=== PATIENT | female | born 1930 | race Caucasian/White ===

== ENCOUNTER 2016-11-20 22:10 | Emergency (ER) | payer MEDICARE ==
--- NOTE | 2016-11-20 23:01 | ED ---
General Adult HPI - General Chief complaint: Urogenital Stated complaint: lumps on body/swollen feet Time Seen by Provider: 11/20/16 22:34 Source: patient, RN notes reviewed, old records reviewed Mode of arrival: wheelchair Limitations: no limitations - History of Present Illness Initial comments: This is an 86-year-old female presenting to the with her daughter and son-in- law. Patient has a history of dementia. She was [facility] after receiving 3 L of fluids after being dehydrated. Patient daughter reports that he noticed that she started to have some swelling in her legs. They stated they gave her one half of a Lasix pill. The report they're concerned because they noticed some edema over her suprapubic region in her inner thigh. The report that she's had no shortness of breath or any worsening chest pain. Patient daughter also reports that she was in the hospital her INR was very elevated. They have that point discontinued her Coumadin until could normalize. They state that they checked it today and it was within normal limits. Patient denies any recent fever, chills, shortness of breath, chest pain, back pain, abdominal pain, nausea vomiting, numbness or tingling, dysuria or hematuria, constipation or diarrhea, headaches or visual changes, or any other current symptoms - Related Data Allergies Allergy/AdvReac Type Severity Reaction Status Date / Time No Known Allergies Allergy Verified 11/20/16 22:54 Review of Systems ROS Statement: Those systems with pertinent positive or pertinent negative responses have been documented in the HPI. ROS Other: All systems not noted in ROS Statement are negative. Past Medical History Past Medical History: Atrial Fibrillation, Dementia, Diabetes Mellitus, Hypertension Additional Past Medical History / Comment(s): anemia, History of Any Multi-Drug Resistant Organisms: None Reported Past Surgical History: Heart Catheterization With Stent, Pacemaker Past Psychological History: No Psychological Hx Reported Smoking Status: Never smoker Past Alcohol Use History: None Reported Past Drug Use History: None Reported General Exam - General Exam Comments Initial Comments: This is a 78-year-old female. No acute distress. Limitations: no limitations General appearance: alert, in no apparent distress Head exam: Present: atraumatic, normocephalic, normal inspection Eye exam: Present: normal appearance, PERRL, EOMI. Absent: scleral icterus, conjunctival injection, periorbital swelling ENT exam: Present: normal exam, mucous membranes moist Neck exam: Present: normal inspection. Absent: tenderness, meningismus, lymphadenopathy Respiratory exam: Present: normal lung sounds bilaterally. Absent: respiratory distress, wheezes, rales, rhonchi, stridor Cardiovascular Exam: Present: regular rate, normal rhythm, normal heart sounds. Absent: systolic murmur, diastolic murmur, rubs, gallop, clicks GI/Abdominal exam: Present: soft, normal bowel sounds, other (Patient has some suprapubic area of edema. It is pitting.). Absent: distended, tenderness, guarding, rebound, rigid Extremities exam: Present: normal inspection, full ROM, normal capillary refill , pedal edema (2+ pedal edema in the left lower leg. One plus pedal edema right lower leg. Evidence of ecchymosis over her feet and ankles.). Absent: tenderness, joint swelling, calf tenderness Back exam: Present: normal inspection Neurological exam: Present: alert, oriented X3, CN II-XII intact Psychiatric exam: Present: normal affect, normal mood Skin exam: Present: warm, dry, intact, normal color. Absent: rash Course Vital Signs 11/20/16 22:13 Temperature 97.4 F L Pulse Rate 88 Respiratory 20 Rate Blood Pressure 128/83 O2 Sat by Pulse 96 Oximetry Medical Decision Making - Medical Decision Making This is an 86-year-old female chief complaint of swelling over her legs, and suprapubic region. They were concerned of what could be causing the swelling and these lumps. Patient started reports that they were discharged from emergency Receiving 3 L of fluid after she was dehydrated. They state that they did restart her Lasix but gave her only 20 mg. Discussed with them that they need to increase her Lasix to 40 mg for the next few days. Discussed elevating her leg. Discussed that all of the "lumps" are just dependent edema. Patient needs to follow-up with her primary care provider. She does not have any worsening shortness of breath and lungs are clear to auscultation. Discussed that patient was more comfortable at home with increasing her Lasix and elevating and instructed for them to return if she does have any worsening shortness of breath. Patient caregivers agreed to treatment plan will comply. Return parameters were discussed. Disposition Clinical Impression: Dependent edema Disposition: HOME SELF-CARE Condition: Good Additional Instructions: Patient's knee is to increase Lasix to 40 mg daily for the next few days. Follow-up with your primary care physician. Elevate the legs with pillows while sleeping at night. Return to the emergency department if any alarming signs or symptoms occur. Referrals: Nonstaff,Physician [Primary Care Provider] - 1-2 days Time of Disposition: 23:00
[2016-11-20 23:27] VITALS: BP 128/60; PULSE 90; RESP 18; TEMP 97.6
--- NOTE | 2016-11-20 23:30 | ED ---
Disposition Clinical Impression: Dependent edema Disposition: HOME SELF-CARE Condition: Good Instructions: Leg Edema (ED) Additional Instructions: Patient's knee is to increase Lasix to 40 mg daily for the next few days. Follow-up with your primary care physician. Elevate the legs with pillows while sleeping at night. Return to the emergency department if any alarming signs or symptoms occur. Referrals: Nonstaff,Physician [Primary Care Provider] - 1-2 days Time of Disposition: 23:30
== END 2016-11-20 23:44 | disposition home or self-care (01) ==
LOC: EC 22:10
DX: R60.0 Localized edema (principal)
CPT/HCPCS: 99283

== ENCOUNTER 2016-12-08 12:03 | Emergency (ER) | payer MEDICARE ==
[2016-12-08] MEDS ORDERED: SODIUM CHLORIDE 0.9% 1,000 ML IV STA (12:32)
[2016-12-08] MEDS ORDERED: SODIUM CHLORIDE 0.9% 500 ML IV STA (12:32)
--- NOTE | 2016-12-08 12:59 | ED ---
General Adult HPI - General Chief complaint: Recheck/Abnormal Lab/Rx Stated complaint: dehydrated Time Seen by Provider: 12/08/16 12:18 Source: patient, RN notes reviewed Mode of arrival: ambulatory Limitations: no limitations - History of Present Illness Initial comments: Patient 86-year-old female who presents emergency room today with family members for possible dehydration. They do admit that her appetite has been decreased over the last few days. States was not drinking much water. States that they're worried that she may be some pain and discomfort as it appears that when she eats she feels uncomfortable. Patient denies any pain. She states that her appetite has been down she's feels like not eating. She denies any other symptoms. Patient denies any recent fever, chills, shortness of breath , chest pain, back pain, abdominal pain, nausea or vomiting, numbness or tingling, dysuria or hematuria, constipation or diarrhea, headaches or visual changes, or any other complaints. - Related Data Home Medications Medication Instructions Recorded Confirmed ALPRAZolam [Xanax] 0.25 mg PO HS 11/20/16 12/08/16 Apriso Er 0.375gm 0.375 gram PO BID 11/20/16 12/08/16 Budesonide [Budesonide EC] 3 mg PO DAILY 11/20/16 12/08/16 Copper 2 Mg 1 mg PO Q48H 11/20/16 12/08/16 Dicyclomine [Bentyl] 10 mg PO QID PRN 11/20/16 12/08/16 Ferrous Sulfate [Feosol] 325 mg PO DAILY 11/20/16 12/08/16 Levothyroxine Sodium [Synthroid] 50 mcg PO DAILY 11/20/16 12/08/16 Meclizine [Antivert] 12.5 mg PO Q6H PRN 11/20/16 12/08/16 Metoprolol Succinate [Toprol XL] 25 mg PO DAILY 11/20/16 12/08/16 Omeprazole [PriLOSEC] 20 mg PO AC-BRKFST 11/20/16 12/08/16 Ranitidine HCl 300 mg PO HS 11/20/16 12/08/16 Sertraline [Zoloft] 12.5 - 50 mg PO DAILY PRN 11/20/16 12/08/16 metFORMIN HCL [metFORMIN HCL ER] 500 mg PO BID 11/20/16 12/08/16 traZODone HCL 50 mg PO HS 11/20/16 12/08/16 Aspirin 325 mg PO DAILY 12/08/16 12/08/16 Furosemide [Lasix] 20 mg PO Q48H 12/08/16 12/08/16 Allergies Allergy/AdvReac Type Severity Reaction Status Date / Time No Known Allergies Allergy Verified 12/08/16 13:23 Review of Systems ROS Statement: Those systems with pertinent positive or pertinent negative responses have been documented in the HPI. ROS Other: All systems not noted in ROS Statement are negative. Past Medical History Past Medical History: Atrial Fibrillation, Dementia, Diabetes Mellitus, Hypertension Additional Past Medical History / Comment(s): anemia, History of Any Multi-Drug Resistant Organisms: None Reported Past Surgical History: Heart Catheterization With Stent, Pacemaker Past Psychological History: No Psychological Hx Reported Smoking Status: Never smoker Past Alcohol Use History: None Reported Past Drug Use History: None Reported General Exam - General Exam Comments Initial Comments: General: The patient is awake and alert. Eye: Pupils are equal, round and reactive to light, extra-ocular movements are intact. No nystagmus. There is normal conjunctiva bilaterally. No signs of icterus. Ears, nose, mouth and throat: There are moist mucous membranes and no oral lesions. Neck: The neck is supple, there is no tenderness or JVD. Cardiovascular: There is a regular rate and rhythm. No murmur, rub or gallop is appreciated. Respiratory: Lungs are clear to auscultation, respirations are non-labored, breath sounds are equal. No wheezes, stridor, rales, or rhonchi. Gastrointestinal: Soft, non-distended, non-tender abdomen without masses or organomegaly noted. There is no rebound or guarding present. No CVA tenderness. Bowel sounds are unremarkable. Musculoskeletal: Normal ROM, no tenderness. Strength 5/5. Sensation intact. Pulses equal bilaterally 2+. Neurological: A&O x 3. CN II-XII intact, There are no obvious motor or sensory deficits. Coordination appears grossly intact. Speech is normal. Skin: Skin is warm and dry and no rashes or lesions are noted. Psychiatric: Cooperative, appropriate mood & affect, normal judgment. Limitations: no limitations Course Vital Signs 12/08/16 12/08/16 12:07 15:11 Temperature 97 F L 96.9 F L Pulse Rate 83 73 Respiratory 18 16 Rate Blood Pressure 133/66 127/73 O2 Sat by Pulse 94 L 92 L Oximetry Medical Decision Making - Medical Decision Making Case discussed in detail with attending physician . Patient reexamined at this time shows no signs of distress resting comfortably. Labs reviewed unremarkable. Patient's urinalysis will have culture added. Patient resting comfortably with no complaints. Will be discharged home advised follow-up the family doctor. Advised return for any other concerns. - Lab Data Result diagrams: 12/08/16 13:35 12/08/16 13:35 Lab Results 12/08/16 12/08/16 12/08/16 Range/Units 13:35 13:35 13:35 WBC 4.2 (3.8-10.6) k/uL RBC 4.46 (3.80-5.40) m/uL Hgb 12.5 (11.4-16.0) gm/dL Hct 42.0 (34.0-46.0) % MCV 94.1 (80.0-100.0) fL MCH 28.1 (25.0-35.0) pg MCHC 29.8 L (31.0-37.0) g/dL RDW 16.2 H (11.5-15.5) % Plt Count 236 (150-450) k/uL Neutrophils % 65 % Lymphocytes % 22 % Monocytes % 7 % Eosinophils % 1 % Basophils % 1 % Neutrophils # 2.7 (1.3-7.7) k/uL Lymphocytes # 0.9 L (1.0-4.8) k/uL Monocytes # 0.3 (0-1.0) k/uL Eosinophils # 0.0 (0-0.7) k/uL Basophils # 0.0 (0-0.2) k/uL Hypochromasia Marked Anisocytosis Slight PT 12.5 H (9.0-12.0) sec INR 1.3 H (<1.2) APTT 27.6 (22.0-30.0) sec Sodium 140 (137-145) mmol/L Potassium 4.7 (3.5-5.1) mmol/L Chloride 104 (98-107) mmol/L Carbon Dioxide 27 (22-30) mmol/L Anion Gap 9 mmol/L BUN 31 H (7-17) mg/dL Creatinine 1.10 H (0.52-1.04) mg/dL Est GFR (MDRD) Af Amer 57 (>60 ml/min/1.73 sqM) Est GFR (MDRD) Non-Af 47 (>60 ml/min/1.73 sqM) Glucose 97 (74-99) mg/dL Calcium 8.7 (8.4-10.2) mg/dL Total Bilirubin 0.4 (0.2-1.3) mg/dL AST 24 (14-36) U/L ALT 26 (9-52) U/L Alkaline Phosphatase 125 (38-126) U/L Total Protein 5.8 L (6.3-8.2) g/dL Albumin 2.8 L (3.5-5.0) g/dL Urine Color Urine Appearance (Clear) Urine pH (5.0-8.0) Ur Specific [place] (1.001-1.035) Urine Protein (Negative) Urine Glucose (UA) (Negative) Urine Ketones (Negative) Urine Blood (Negative) Urine Nitrite (Negative) Urine Bilirubin (Negative) Urine Urobilinogen (<2.0) mg/dL Ur Leukocyte Esterase (Negative) Urine RBC (0-5) /hpf Urine WBC (0-5) /hpf Ur Squamous Epith Cells (0-4) /hpf Hyaline Casts (0-2) /lpf Urine Mucus (None) /hpf 12/08/16 Range/Units 15:00 WBC (3.8-10.6) k/uL RBC (3.80-5.40) m/uL Hgb (11.4-16.0) gm/dL Hct (34.0-46.0) % MCV (80.0-100.0) fL MCH (25.0-35.0) pg MCHC (31.0-37.0) g/dL RDW (11.5-15.5) % Plt Count (150-450) k/uL Neutrophils % % Lymphocytes % % Monocytes % % Eosinophils % % Basophils % % Neutrophils # (1.3-7.7) k/uL Lymphocytes # (1.0-4.8) k/uL Monocytes # (0-1.0) k/uL Eosinophils # (0-0.7) k/uL Basophils # (0-0.2) k/uL Hypochromasia Anisocytosis PT (9.0-12.0) sec INR (<1.2) APTT (22.0-30.0) sec Sodium (137-145) mmol/L Potassium (3.5-5.1) mmol/L Chloride (98-107) mmol/L Carbon Dioxide (22-30) mmol/L Anion Gap mmol/L BUN (7-17) mg/dL Creatinine (0.52-1.04) mg/dL Est GFR (MDRD) Af Amer (>60 ml/min/1.73 sqM) Est GFR (MDRD) Non-Af (>60 ml/min/1.73 sqM) Glucose (74-99) mg/dL Calcium (8.4-10.2) mg/dL Total Bilirubin (0.2-1.3) mg/dL AST (14-36) U/L ALT (9-52) U/L Alkaline Phosphatase (38-126) U/L Total Protein (6.3-8.2) g/dL Albumin (3.5-5.0) g/dL Urine Color Yellow Urine Appearance Clear (Clear) Urine pH 5.5 (5.0-8.0) Ur Specific [place] 1.015 (1.001-1.035) Urine Protein 1+ H (Negative) Urine Glucose (UA) Negative (Negative) Urine Ketones Trace H (Negative) Urine Blood Negative (Negative) Urine Nitrite Negative (Negative) Urine Bilirubin Negative (Negative) Urine Urobilinogen <2.0 (<2.0) mg/dL Ur Leukocyte Esterase Moderate H (Negative) Urine RBC 1 (0-5) /hpf Urine WBC 6 H (0-5) /hpf Ur Squamous Epith Cells <1 (0-4) /hpf Hyaline Casts 94 H (0-2) /lpf Urine Mucus Rare H (None) /hpf Disposition Clinical Impression: Decreased appetite Disposition: HOME SELF-CARE Condition: Stable Additional Instructions: Please increase oral fluids. Please follow-up with family doctor in the next 2 days of symptoms have not improved. Please return to emergency room if the symptoms increase or worsen or for any other concerns. Referrals: None,Stated [REFERRING] - 1-2 days Time of Disposition: 15:24
[2016-12-08 14:05] LABS: Calcium 8.7 mg/dL (8.4-10.2); Potassium 4.7 mmol/L (3.5-5.1); Total Bilirubin 0.4 mg/dL (0.2-1.3); Total Protein 5.8 g/dL (6.3-8.2)
[2016-12-08 14:07] LABS: Anisocytosis Slight; Basophils % (A) 1 %; CH 27.6; CHCM 29.6; Eosinophils % (A) 1 %; HGB 12.5 gm/dL (11.4-16.0); Hypochromasia Marked; Luc # (Auto) 0.15; Luc % (Auto) 4; Lymphocytes # (A) 0.9 k/uL (1.0-4.8); Lymphocytes % (A) 22 %; MCH 28.1 pg (25.0-35.0); MCHC 29.8 g/dL (31.0-37.0); MCV 94.1 fL (80.0-100.0); Mean Platelet Volume 8.1; Monocytes # (A) 0.3 k/uL (0-1.0); Monocytes % (A) 7 %; Neutrophils # (A) 2.7 k/uL (1.3-7.7); Neutrophils % (A) 65 %; RBC 4.46 m/uL (3.80-5.40); RDW 16.2 % (11.5-15.5); WBC 4.2 k/uL (3.8-10.6); WBC (Perox) 4.42
[2016-12-08 14:08] LABS: INR 1.3 (<1.2); Partial Thromboplastin Time 27.6 sec (22.0-30.0); Prothrombin Time 12.5 sec (9.0-12.0)
--- NOTE | 2016-12-08 14:11 | XR ---
EXAMINATION TYPE: XR chest 2V DATE OF EXAM: 12/08/2016 COMPARISON: NONE INDICATION: Cough TECHNIQUE: Frontal and lateral views of the chest are obtained. FINDINGS: The heart size is normal. The pulmonary vasculature is normal. There is a small right pleural effusion. Pacemaker overlies left chest. IMPRESSION: 1. Small right pleural effusion
[2016-12-08 15:12] VITALS: BP 127/73; PULSE 73; RESP 16; TEMP 96.9
[2016-12-08 15:14] LABS: Appearance,Urine Clear (Clear); Bilirubin,Urine Negative (Negative); Glucose,Urine (UA) Negative (Negative); Ketones,Urine Trace (Negative); Leukocyte Esterase,Urine Moderate (Negative); Mucus,Urine Rare /hpf; Nitrite,Urine Negative (Negative); PH, Urine 5.5 (5.0-8.0); Particle Count 3561; Protein,Urine 1+ (Negative); RBC,Urine 1 /hpf (0-5); Specific Gravity,Urine 1.015 (1.001-1.035); Squamous Epithelial Cell,Urine <1 /hpf (0-4); UA Billing (MACRO vs. MICRO) MICRO; Urobilinogen,Urine <2.0 mg/dL (<2.0); WBC,Urine 6 /hpf (0-5)
== END 2016-12-08 15:37 | disposition home or self-care (01) ==
LOC: EC 12:03
DX: R63.0 Anorexia (principal); E86.0 Dehydration; I10 Essential (primary) hypertension; E11.9 Type 2 diabetes mellitus without complications; F03.90 Unspecified dementia, unspecified severity, without behavioral disturbance, psychotic disturbance, mood disturbance, and anxiety; I48.91 Unspecified atrial fibrillation; D64.9 Anemia, unspecified; Z95.0 Presence of cardiac pacemaker; Z79.82 Long term (current) use of aspirin; Z79.84 Long term (current) use of oral hypoglycemic drugs; Z79.899 Other long term (current) drug therapy
CPT/HCPCS: 36415; 71020; 80053; 81001; 85025; 85610; 85730; 87086; 96360; 99284

== ENCOUNTER 2016-12-11 12:58 | Inpatient (IN) | payer MEDICARE ==
[2016-12-11] MEDS ORDERED: IPRATROPIUM-ALBUTEROL 3 ML NEB INHALATION STA (13:09)
--- NOTE | 2016-12-11 13:14 | ED ---
General Adult HPI - General Chief complaint: Shortness of Breath Stated complaint: RUPERT Time Seen by Provider: 12/11/16 13:05 Source: family, EMS, RN notes reviewed Mode of arrival: EMS Limitations: altered mental status - History of Present Illness Initial comments: Patient is a pleasant 86-year-old female presenting to the emergency department with difficulty in breathing and decreased responsiveness. Daughter provides history. Patient is nonverbal at this time. Daughter states patient has advanced dementia and they are considering hospice. Patient has had progressive shortness of breath over a couple of days, worse today. Patient has been less responsive today. No history of chronic lung disease. - Related Data Home Medications Medication Instructions Recorded Confirmed ALPRAZolam [Xanax] 0.25 mg PO HS 11/20/16 12/11/16 Apriso Er 0.375gm 0.375 gram PO BID 11/20/16 12/11/16 Budesonide [Budesonide EC] 3 mg PO DAILY 11/20/16 12/11/16 Copper 2 Mg 1 mg PO Q48H 11/20/16 12/11/16 Dicyclomine [Bentyl] 10 mg PO QID PRN 11/20/16 12/11/16 Ferrous Sulfate [Feosol] 325 mg PO DAILY 11/20/16 12/11/16 Levothyroxine Sodium [Synthroid] 50 mcg PO DAILY 11/20/16 12/11/16 Meclizine [Antivert] 12.5 mg PO TID PRN 11/20/16 12/11/16 Metoprolol Succinate [Toprol XL] 25 mg PO DAILY 11/20/16 12/11/16 Omeprazole [PriLOSEC] 20 mg PO AC-BRKFST 11/20/16 12/11/16 Ranitidine HCl 300 mg PO HS 11/20/16 12/11/16 Sertraline [Zoloft] 12.5 - 50 mg PO DAILY PRN 11/20/16 12/11/16 metFORMIN HCL [metFORMIN HCL ER] 500 mg PO BID 11/20/16 12/11/16 traZODone HCL 50 mg PO HS 11/20/16 12/11/16 Furosemide [Lasix] 20 mg PO Q48H 12/08/16 12/11/16 Allergies Allergy/AdvReac Type Severity Reaction Status Date / Time No Known Allergies Allergy Verified 09/04/17 14:26 Review of Systems ROS Statement: Those systems with pertinent positive or pertinent negative responses have been documented in the HPI. ROS Other: All systems not noted in ROS Statement are negative. Limitations: ROS unobtainable due to patients medical condition Respiratory: Reports: dyspnea. Denies: cough Past Medical History Past Medical History: Atrial Fibrillation, Dementia, Diabetes Mellitus, Hypertension Additional Past Medical History / Comment(s): anemia, History of Any Multi-Drug Resistant Organisms: None Reported Past Surgical History: Heart Catheterization With Stent, Pacemaker Past Psychological History: No Psychological Hx Reported Smoking Status: Never smoker Past Alcohol Use History: None Reported Past Drug Use History: None Reported General Exam Limitations: altered mental status General appearance: alert, cachectic Head exam: Present: atraumatic Eye exam: Present: normal appearance ENT exam: Present: normal oropharynx Respiratory exam: Present: decreased breath sounds Cardiovascular Exam: Present: tachycardia, irregular rhythm GI/Abdominal exam: Present: soft. Absent: tenderness Extremities exam: Present: pedal edema (Trace bilateral). Absent: calf tenderness Back exam: Present: normal inspection Neurological exam: Present: alert, other (Limited exam). Absent: motor sensory deficit Psychiatric exam: Present: flat affect Skin exam: Present: normal color Course Vital Signs 12/11/16 12/11/16 12/11/16 13:04 13:45 13:54 Temperature 97.0 F L Pulse Rate 108 H 108 H 104 H Respiratory 28 H 26 H Rate Blood Pressure 139/63 108/55 O2 Sat by Pulse 65 L 100 Oximetry 12/11/16 12/11/16 14:10 15:35 Temperature Pulse Rate 112 H 95 Respiratory 26 H 18 Rate Blood Pressure 150/65 O2 Sat by Pulse 99 Oximetry EKG Findings - EKG Comments: EKG Findings:: A. fib with rate of 98. QRS 84. QT 378. QTC 42. Normal axis. Normal QRS. Lateral T wave inversion. Procedures - ABG Interpretation Ph: 7.19 PCO2: 85.5 PO2: 467 Interpretation: respiratory acidosis Medical Decision Making - Medical Decision Making Patient reexamined and significantly improved with BiPAP. Family updated on results and plan. Family wants patient to be no chest compressions. Dr. Alicea has been paged for admission. - Lab Data Result diagrams: 12/11/16 14:25 12/11/16 14:25 Lab Results 12/11/16 12/11/16 12/11/16 Range/Units 13:13 14:25 14:25 WBC 3.5 L (3.8-10.6) k/uL RBC 4.63 (3.80-5.40) m/uL Hgb 13.2 (11.4-16.0) gm/dL Hct 45.2 (34.0-46.0) % MCV 97.6 (80.0-100.0) fL MCH 28.5 (25.0-35.0) pg MCHC 29.2 L (31.0-37.0) g/dL RDW 17.2 H (11.5-15.5) % Plt Count 171 (150-450) k/uL Neutrophils % 63 % Lymphocytes % 22 % Monocytes % 9 % Eosinophils % 1 % Basophils % 1 % Neutrophils # 2.2 (1.3-7.7) k/uL Lymphocytes # 0.8 L (1.0-4.8) k/uL Monocytes # 0.3 (0-1.0) k/uL Eosinophils # 0.0 (0-0.7) k/uL Basophils # 0.0 (0-0.2) k/uL Hypochromasia Marked Anisocytosis Slight Macrocytosis Slight PT 11.9 (9.0-12.0) sec INR 1.2 H (<1.2) APTT 21.9 L (22.0-30.0) sec Sample Site rrad ABG pH 7.19 L* (7.35-7.45) ABG pCO2 86 H* (35-45) mmHg ABG pO2 >400 H (83-108) mmHg ABG HCO3 31 H (21-25) mmol/L ABG Total CO2 34 H (19-24) mmol/L ABG O2 Saturation 100.0 H (94-97) % ABG Base Excess 3.7 mmol/L FiO2 100 % Sodium (137-145) mmol/L Potassium (3.5-5.1) mmol/L Chloride (98-107) mmol/L Carbon Dioxide (22-30) mmol/L Anion Gap mmol/L BUN (7-17) mg/dL Creatinine (0.52-1.04) mg/dL Est GFR (MDRD) Af Amer (>60 ml/min/1.73 sqM) Est GFR (MDRD) Non-Af (>60 ml/min/1.73 sqM) Glucose (74-99) mg/dL Calcium (8.4-10.2) mg/dL Total Bilirubin (0.2-1.3) mg/dL AST (14-36) U/L ALT (9-52) U/L Alkaline Phosphatase (38-126) U/L Total Creatine Kinase (30-135) U/L CK-MB (CK-2) (0.0-2.4) ng/mL CK-MB (CK-2) Rel Index Troponin I (0.000-0.034) ng/mL NT-Pro-B Natriuret Pep pg/mL Total Protein (6.3-8.2) g/dL Albumin (3.5-5.0) g/dL 12/11/16 12/11/16 12/11/16 Range/Units 14:25 14:25 14:25 WBC (3.8-10.6) k/uL RBC (3.80-5.40) m/uL Hgb (11.4-16.0) gm/dL Hct (34.0-46.0) % MCV (80.0-100.0) fL MCH (25.0-35.0) pg MCHC (31.0-37.0) g/dL RDW (11.5-15.5) % Plt Count (150-450) k/uL Neutrophils % % Lymphocytes % % Monocytes % % Eosinophils % % Basophils % % Neutrophils # (1.3-7.7) k/uL Lymphocytes # (1.0-4.8) k/uL Monocytes # (0-1.0) k/uL Eosinophils # (0-0.7) k/uL Basophils # (0-0.2) k/uL Hypochromasia Anisocytosis Macrocytosis PT (9.0-12.0) sec INR (<1.2) APTT (22.0-30.0) sec Sample Site ABG pH (7.35-7.45) ABG pCO2 (35-45) mmHg ABG pO2 (83-108) mmHg ABG HCO3 (21-25) mmol/L ABG Total CO2 (19-24) mmol/L ABG O2 Saturation (94-97) % ABG Base Excess mmol/L FiO2 % Sodium 140 (137-145) mmol/L Potassium 4.8 (3.5-5.1) mmol/L Chloride 104 (98-107) mmol/L Carbon Dioxide 30 (22-30) mmol/L Anion Gap 6 mmol/L BUN 29 H (7-17) mg/dL Creatinine 1.00 (0.52-1.04) mg/dL Est GFR (MDRD) Af Amer >60 (>60 ml/min/1.73 sqM) Est GFR (MDRD) Non-Af 52 (>60 ml/min/1.73 sqM) Glucose 110 H (74-99) mg/dL Calcium 9.1 (8.4-10.2) mg/dL Total Bilirubin 0.6 (0.2-1.3) mg/dL AST 32 (14-36) U/L ALT 32 (9-52) U/L Alkaline Phosphatase 126 (38-126) U/L Total Creatine Kinase 70 (30-135) U/L CK-MB (CK-2) 4.1 H* (0.0-2.4) ng/mL CK-MB (CK-2) Rel Index 5.9 Troponin I 0.077 H* (0.000-0.034) ng/mL NT-Pro-B Natriuret Pep 53319 pg/mL Total Protein 5.8 L (6.3-8.2) g/dL Albumin 2.8 L (3.5-5.0) g/dL - Radiology Data Radiology results: image reviewed (Chest x-ray shows small posterior pleural effusion.) Critical Care Time Critical Care Time: Yes Total Critical Care Time: 34 Disposition Clinical Impression: Acute respiratory failure Disposition: ADMITTED IP TO THIS [facility] Condition: Serious Referrals: Nonstaff,Physician [Primary Care Provider] - 1-2 days Decision Time: 15:51
[2016-12-11 13:30] LABS: ABG PH 7.19 (7.35-7.45)
[2016-12-11 13:31] LABS: ABG Base Excess 3.7 mmol/L; ABG HCO3 31 mmol/L (21-25); ABG PCO2 86 mmHg (35-45); ABG PO2 >400 mmHg (83-108); ABG TCO2 34 mmol/L (19-24)
--- NOTE | 2016-12-11 13:41 | XR ---
EXAMINATION TYPE: XR chest 2V DATE OF EXAM: 12/11/2016 COMPARISON: 12/08/2016 INDICATION: Difficulty breathing TECHNIQUE: Frontal and lateral views of the chest are obtained. FINDINGS: The heart size is normal. The pulmonary vasculature is normal. Posterior pleural effusion is present. Suspicious focal consolidation is not evident. Electronic deysi ce overlies left chest.. IMPRESSION: 1. Small posterior pleural effusion likely on the right
[2016-12-11 14:43] LABS: Anisocytosis Slight; Basophils % (A) 1 %; CH 28.3; CHCM 29.2; Eosinophils % (A) 1 %; HCT 45.2 % (34.0-46.0); HDW 2.92; HGB 13.2 gm/dL (11.4-16.0); Hypochromasia Marked; Luc # (Auto) 0.15; Luc % (Auto) 5; Lymphocytes # (A) 0.8 k/uL (1.0-4.8); Lymphocytes % (A) 22 %; MCH 28.5 pg (25.0-35.0); MCHC 29.2 g/dL (31.0-37.0); MCV 97.6 fL (80.0-100.0); Macrocytosis Slight; Mean Platelet Volume 7.7; Monocytes # (A) 0.3 k/uL (0-1.0); Monocytes % (A) 9 %; Neutrophils # (A) 2.2 k/uL (1.3-7.7); Neutrophils % (A) 63 %; RBC 4.63 m/uL (3.80-5.40); RDW 17.2 % (11.5-15.5); WBC 3.5 k/uL (3.8-10.6); WBC (Perox) 3.41
[2016-12-11 14:49] LABS: INR 1.2 (<1.2); Prothrombin Time 11.9 sec (9.0-12.0)
[2016-12-11 14:51] LABS: Partial Thromboplastin Time 21.9 sec (22.0-30.0)
[2016-12-11 14:57] LABS: ALT 32 U/L (9-52); AST 32 U/L (14-36); Alkaline Phosphatase 126 U/L (38-126); Anion Gap 6 mmol/L; Blood Urea Nitrogen 29 mg/dL (7-17); Calcium 9.1 mg/dL (8.4-10.2); Carbon Dioxide 30 mmol/L (22-30); Chloride 104 mmol/L (98-107); Glucose 110 mg/dL (74-99); Non-African American GFR(MDRD) 52 (>60 ml/min/1.73 sqM); Potassium 4.8 mmol/L (3.5-5.1); Sodium 140 mmol/L (137-145); Total Bilirubin 0.6 mg/dL (0.2-1.3); Total Protein 5.8 g/dL (6.3-8.2)
[2016-12-11 15:20] LABS: Creatine Kinase MB 4.1 ng/mL (0.0-2.4); Troponin I 0.077 ng/mL (0.000-0.034)
[2016-12-11] MEDS ORDERED: IPRATROPIUM-ALBUTEROL 3 ML NEB INHALATION PRN (15:51)
[2016-12-11] MEDS ORDERED: FUROSEMIDE 10 MG/ML 4 ML VIAL IV STA (15:53)
[2016-12-11] MEDS ORDERED: NALOXONE 0.4 MG/ML 1 ML VIAL IV PRN (15:53)
[2016-12-11] MEDS ORDERED: FUROSEMIDE 20 MG TAB PO SCH (18:00)
[2016-12-11] MEDS ORDERED: MECLIZINE 12.5 MG TAB PO PRN (18:04)
[2016-12-11] MEDS ORDERED: SERTRALINE 25 MG TAB PO PRN (18:04)
[2016-12-11] MEDS ORDERED: DICYCLOMINE 10 MG CAP PO PRN (18:04)
[2016-12-11] MEDS ORDERED: SODIUM CHLORIDE 0.9% 1,000 ML IV SCH (18:15)
[2016-12-11] MEDS: IPRATROPIUM-ALBUTEROL 3 ML NEB INHALATION SCH ×2 (18:21→20:56)
[2016-12-11] MEDS: methylPREDNISolone SOD SUCCI 125 MG/2 ML VIAL IV SCH ×2 (18:35→23:16)
[2016-12-11 20:21] LABS: Troponin I 0.088 ng/mL (0.000-0.034)
[2016-12-11] MEDS: traZODone HCL 50 MG TAB PO SCH ×2 (20:55→21:12)
[2016-12-11] MEDS: BALSALAZIDE DISODIUM 750 MG CAPSULE PO SCH ×2 (20:56→21:12)
[2016-12-11] MEDS: FAMOTIDINE 20 MG TAB PO SCH ×2 (20:56→21:12)
[2016-12-11] MEDS: ALPRAZolam 0.25 MG TAB PO SCH ×2 (20:58→21:13)
[2016-12-11 21:28] LABS: Glucose,Whole Blood 116 mg/dL (75-99)
[2016-12-11] MEDS: INSULIN LISPRO (humaLOG) 300 UNIT/3 ML VIAL SQ SCH (21:28)
[2016-12-12] MEDS ORDERED: IOHEXOL 350 MG/ML 25 ML BOTTLE (ORAL USE) PO PRN (00:18)
[2016-12-12 02:48] LABS: Appearance,Urine Clear (Clear); Bilirubin,Urine Negative (Negative); Glucose,Urine (UA) Negative (Negative); Ketones,Urine Negative (Negative); Leukocyte Esterase,Urine Negative (Negative); Nitrite,Urine Negative (Negative); Protein,Urine Trace (Negative); Specific Gravity,Urine 1.009 (1.001-1.035); UA Billing (MACRO vs. MICRO) CHEM; Urobilinogen,Urine <2.0 mg/dL (<2.0)
[2016-12-12 03:40] LABS: Creatine Kinase MB 4.1 ng/mL (0.0-2.4); Troponin I 0.101 ng/mL (0.000-0.034)
[2016-12-12 04:12] VITALS: TEMP 98.2
[2016-12-12] MEDS: methylPREDNISolone SOD SUCCI 125 MG/2 ML VIAL IV SCH ×2 (06:24→12:02)
[2016-12-12] MEDS ORDERED: LEVOTHYROXINE 50 MCG TAB PO SCH (06:30)
[2016-12-12 06:43] LABS: Glucose,Whole Blood 122 mg/dL (75-99)
[2016-12-12] MEDS: INSULIN LISPRO (humaLOG) 300 UNIT/3 ML VIAL SQ SCH ×2 (06:46→11:54)
[2016-12-12] MEDS: IPRATROPIUM-ALBUTEROL 3 ML NEB INHALATION SCH ×2 (07:02→11:10)
[2016-12-12] MEDS ORDERED: metFORMIN 500 MG TAB PO SCH (07:30)
[2016-12-12] MEDS ORDERED: PANTOPRAZOLE 40 MG TABLET PO SCH (07:30)
[2016-12-12] MEDS ORDERED: BUDESONIDE 1 MG/2 ML NEBU INHALATION SCH (08:00)
[2016-12-12] MEDS ORDERED: FORMOTEROL FUMARATE 20 MCG/2 ML NEBU INHALATION SCH (08:00)
[2016-12-12 08:35] VITALS: BP 81/45; PULSE 85; RESP 16
[2016-12-12] MEDS: BALSALAZIDE DISODIUM 750 MG CAPSULE PO SCH (08:35)
[2016-12-12] MEDS ORDERED: METOPROLOL SUCCINATE (ER) 25 MG TAB.ER.24H PO SCH (09:00)
[2016-12-12] MEDS ORDERED: FERROUS SULFATE 325 MG TAB PO SCH (09:00)
--- NOTE | 2016-12-12 09:07 | P.CONS ---
History of Present Illness - Reason for Consult Consult date: 12/12/16 Dysphagia Requesting physician: Jostin Alicea - History of Present Illness 86-year-old female history of A. fib, diabetes, hypertension CAD with PCI stent , pacemaker, with shortness of breath and elevated troponin, and decreased responsiveness with advanced dementia. History obtained from her daughter Teresa, medical records and nursing staff. Family possibly considering hospice. Consultation requested for dysphagia. Admission chemistries white count 3.5. Hemoglobin 13.2. Platelet 171. INR 1.2. Troponin 0.07-0.10. Sodium 140. Potassium 4.8. BUN 29th or creatinine 1.0. Glucose 110. LFTs normal. ProBNP 10,500. According to the daughter she's had ongoing difficulty swallowing for more than a few months. Recent swallow test reported no evidence of obstruction. Modified. Diet at home. Over the last 1-2 days become more unresponsive. No reports of bleeding. No vomiting per family. Daughter states she is waiting for her brother to arrive to discuss possible hospice today. Review of Systems Obtained from medical records patient and able to provide Constitutional: Denies fever, chills, sweats, weight gain, or loss. HEENT: Negative for migraines, blurred vision or loss, earaches, drainage, tinnitus, oral mucosal lesions, dysphagia, or odynophagia. CARDIAC: Atrial fibrillation. Hypertension. CAD with PCI stent. Pacemaker. Negative for chest pain, arrhythmias, or palpitation. RESPIRATORY: Reports of hemoptysis, cough, or sputum production. GI: See HPI for pertinent findings. : Negative for hematuria, urgency, frequency, polyuria, or dysuria. GYNc: Denies possibility of . Negative vaginal discharge. MUSCULOSKELETAL: Negative for muscle aches, swelling, arthritis, and arthralgias. NEUROLOGIC: Negative for stroke or TIA. ENDOCRINE: Negative for thyroid problems. SKIN: Negative for rash or itching. PSYCHIATRIC: Dementia. ROS unobtainable: due to mental status Past Medical History Past Medical History: Atrial Fibrillation, Dementia, Diabetes Mellitus, Hypertension Additional Past Medical History / Comment(s): anemia, History of Any Multi-Drug Resistant Organisms: None Reported Past Surgical History: Heart Catheterization With Stent, Pacemaker Date of Last Stent Placement:: 08/08/2011 Type of Cardiac Device: Permanent Pacemaker Device Placement Date:: 08/08/2011 Past Psychological History: No Psychological Hx Reported Smoking Status: Never smoker Past Alcohol Use History: None Reported Past Drug Use History: None Reported Medications and Allergies Home Medications Medication Instructions Recorded Confirmed Type ALPRAZolam [Xanax] 0.25 mg PO HS 11/20/16 12/11/16 History Apriso Er 0.375gm 0.375 gram PO BID 11/20/16 12/11/16 History Budesonide [Budesonide EC] 3 mg PO DAILY 11/20/16 12/11/16 History Copper 2 Mg 1 mg PO Q48H 11/20/16 12/11/16 History Dicyclomine [Bentyl] 10 mg PO QID PRN 11/20/16 12/11/16 History Ferrous Sulfate [Feosol] 325 mg PO DAILY 11/20/16 12/11/16 History Levothyroxine Sodium [Synthroid] 50 mcg PO DAILY 11/20/16 12/11/16 History Meclizine [Antivert] 12.5 mg PO TID PRN 11/20/16 12/11/16 History Metoprolol Succinate [Toprol XL] 25 mg PO DAILY 11/20/16 12/11/16 History Omeprazole [PriLOSEC] 20 mg PO AC-BRKFST 11/20/16 12/11/16 History Ranitidine HCl 300 mg PO HS 11/20/16 12/11/16 History Sertraline [Zoloft] 12.5 - 50 mg PO DAILY PRN 11/20/16 12/11/16 History metFORMIN HCL [metFORMIN HCL ER] 500 mg PO BID 11/20/16 12/11/16 History traZODone HCL 50 mg PO HS 11/20/16 12/11/16 History Furosemide [Lasix] 20 mg PO Q48H 12/08/16 12/11/16 History Allergies Allergy/AdvReac Type Severity Reaction Status Date / Time No Known Allergies Allergy Verified 12/11/16 14:26 Physical Exam Vitals: Vital Signs Temp Pulse Pulse Resp BP BP Pulse Ox 12/12/16 07:24 98 12/12/16 07:23 98 12/12/16 07:06 100 12/12/16 04:00 98.2 F 80 22 103/54 100 12/11/16 23:41 118 H 22 119/53 100 12/11/16 21:08 100 12/11/16 20:57 100 12/11/16 20:00 97.9 F 111 H 22 133/54 99 12/11/16 17:26 97.1 F L 101 H 18 111/58 93 L 12/11/16 17:14 97.0 F L 102 H 24 122/62 99 12/11/16 16:35 102 H 24 136/63 99 12/11/16 15:35 95 18 150/65 99 12/11/16 14:10 112 H 26 H 12/11/16 13:54 104 H 12/11/16 13:45 108 H 26 H 108/55 100 12/11/16 13:04 97.0 F L 108 H 28 H 139/63 65 L Intake and Output 12/11/16 12/12/16 12/12/16 22:59 06:59 14:59 Intake Total 50 400 Output Total 200 Balance 50 200 Intake: IV 50 400 Sodium Chloride 0.9% 1, 50 400 000 ml @ 50 mls/hr IV . Q20H [facility] Rx#:[id number] Output: Urine 200 Straight 200 Other: Voiding Method Diaper Diaper Incontinent Incontinent # Voids 1 Weight 40 kg 47.5 kg General appearance: The patient is unresponsive. HET: Head is normocephalic and atraumatic. Pupils are equal and reactive. Oropharynx is clear without lesions. Neck: Supple without lymphadenopathy. Trachea midline. Heart: S1 S2. Lungs: No crackles or wheezes are heard. Abdomen: Soft, nontender, nondistended with bowel sounds. No peritoneal signs. No palpable organomegaly or masses. Extremities: Normal skin color and turgor. No cyanosis, rash, ulceration, clubbing, or edema. Radial and pedal pulses are 2/4 bilaterally. Neurological: No focal deficits. Strength and sensation are grossly intact. Results CBC & Chem 7: 12/11/16 14:25 12/11/16 14:25 Labs: Abnormal Lab Results - Last 24 Hours (Table) 12/11/16 12/11/16 12/11/16 Range/Units 13:13 14:25 14:25 WBC 3.5 L (3.8-10.6) k/uL MCHC 29.2 L (31.0-37.0) g/dL RDW 17.2 H (11.5-15.5) % Lymphocytes # 0.8 L (1.0-4.8) k/uL INR 1.2 H (<1.2) APTT 21.9 L (22.0-30.0) sec ABG pH 7.19 L* (7.35-7.45) ABG pCO2 86 H* (35-45) mmHg ABG pO2 >400 H (83-108) mmHg ABG HCO3 31 H (21-25) mmol/L ABG Total CO2 34 H (19-24) mmol/L ABG O2 Saturation 100.0 H (94-97) % BUN (7-17) mg/dL Glucose (74-99) mg/dL POC Glucose (mg/dL) (75-99) mg/dL Total Creatine Kinase (30-135) U/L CK-MB (CK-2) (0.0-2.4) ng/mL Troponin I (0.000-0.034) ng/mL Total Protein (6.3-8.2) g/dL Albumin (3.5-5.0) g/dL Urine Protein (Negative) 12/11/16 12/11/16 12/11/16 Range/Units 14:25 14:25 19:21 WBC (3.8-10.6) k/uL MCHC (31.0-37.0) g/dL RDW (11.5-15.5) % Lymphocytes # (1.0-4.8) k/uL INR (<1.2) APTT (22.0-30.0) sec ABG pH (7.35-7.45) ABG pCO2 (35-45) mmHg ABG pO2 (83-108) mmHg ABG HCO3 (21-25) mmol/L ABG Total CO2 (19-24) mmol/L ABG O2 Saturation (94-97) % BUN 29 H (7-17) mg/dL Glucose 110 H (74-99) mg/dL POC Glucose (mg/dL) (75-99) mg/dL Total Creatine Kinase 25 L (30-135) U/L CK-MB (CK-2) 4.1 H* 4.0 H* (0.0-2.4) ng/mL Troponin I 0.077 H* 0.088 H* (0.000-0.034) ng/mL Total Protein 5.8 L (6.3-8.2) g/dL Albumin 2.8 L (3.5-5.0) g/dL Urine Protein (Negative) 12/11/16 12/12/16 12/12/16 Range/Units 21:27 02:39 02:48 WBC (3.8-10.6) k/uL MCHC (31.0-37.0) g/dL RDW (11.5-15.5) % Lymphocytes # (1.0-4.8) k/uL INR (<1.2) APTT (22.0-30.0) sec ABG pH (7.35-7.45) ABG pCO2 (35-45) mmHg ABG pO2 (83-108) mmHg ABG HCO3 (21-25) mmol/L ABG Total CO2 (19-24) mmol/L ABG O2 Saturation (94-97) % BUN (7-17) mg/dL Glucose (74-99) mg/dL POC Glucose (mg/dL) 116 H (75-99) mg/dL Total Creatine Kinase 25 L (30-135) U/L CK-MB (CK-2) 4.1 H* (0.0-2.4) ng/mL Troponin I 0.101 H* (0.000-0.034) ng/mL Total Protein (6.3-8.2) g/dL Albumin (3.5-5.0) g/dL Urine Protein Trace H (Negative) 12/12/16 Range/Units 06:33 WBC (3.8-10.6) k/uL MCHC (31.0-37.0) g/dL RDW (11.5-15.5) % Lymphocytes # (1.0-4.8) k/uL INR (<1.2) APTT (22.0-30.0) sec ABG pH (7.35-7.45) ABG pCO2 (35-45) mmHg ABG pO2 (83-108) mmHg ABG HCO3 (21-25) mmol/L ABG Total CO2 (19-24) mmol/L ABG O2 Saturation (94-97) % BUN (7-17) mg/dL Glucose (74-99) mg/dL POC Glucose (mg/dL) 122 H (75-99) mg/dL Total Creatine Kinase (30-135) U/L CK-MB (CK-2) (0.0-2.4) ng/mL Troponin I (0.000-0.034) ng/mL Total Protein (6.3-8.2) g/dL Albumin (3.5-5.0) g/dL Urine Protein (Negative) Assessment and Plan (1) Dysphagia Narrative/Plan: 86-year-old female with a history of dementia presents with unresponsiveness with reports of dysphagia decreased appetite at home. Status: Acute (2) Dementia Status: Acute Plan: 1. Daughter is requesting a family meeting to discuss hospice measures with her brother this morning. 2. Continue supportive measures. No further workup at this time. We'll be available for additional questions or concerns the patient's clinical condition improves. Thank you for this kind referral and the opportunity to participate in the care of your patient. This consultation was discussed with Dr. Sanchez. The impression and plan of care have been directed as dictated.
--- NOTE | 2016-12-12 10:03 | ECHOF ---
Referral Reason:chf MEASUREMENTS -------- HEIGHT: 152.4 cm WEIGHT: 34.0 kg BP: 103/54 RVIDd: 2.0 cm (< 3.3) IVSd: 0.8 cm (0.6 - 1.1) LVIDd: 2.8 cm (3.9 - 5.3) LVPWd: 1.0 cm (0.6 - 1.1) IVSs: 1.4 cm LVIDs: 2.1 cm LVPWs: 1.1 cm LA Diam: 3.1 cm (2.7 - 3.8) LAESV Index (A-L): 16.83 ml/m Ao Diam: 2.1 cm (2.0 - 3.7) AV Cusp: 1.2 cm (1.5 - 2.6) MV EXCURSION: 13.015 mm (> 18.000) MV EF SLOPE: 119 mm/s (70 - 150) EPSS: 0.7 cm RAP: 5.00 mmHg RVSP: 43.00 mmHg FINDINGS -------- This was a technically adequate study. The left ventricular size is normal. Left ventricular wall thickness is normal. Overall left ventricular systolic function is normal with, an EF between 55 - 60 %. The right ventricle is normal in size. Normal LA size by volume 22+/-6 ml/m2. The right atrium is normal in size. The aortic valve was not well visualized. The mitral valve leaflets are mild to moderately thickened. Mild mitral annular calcification present. Mild mitral regurgitation is present. Mild tricuspid regurgitation present. There is mild pulmonary hypertension. The right ventricular systolic pressure, as measured by Doppler, is 43.00mmHg. Trace/mild (physiologic) pulmonic regurgitation. The aortic root size is normal. There is no pericardial effusion. Small Pleural Effusion. CONCLUSIONS -------- 1. This was a technically adequate study. 2. Mild mitral regurgitation is present. 3. Mild tricuspid regurgitation present. 4. There is mild pulmonary hypertension. 5. The right ventricular systolic pressure, as measured by Doppler, is 43.00mmHg. 6. Trace/mild (physiologic) pulmonic regurgitation. 7. The aortic root size is normal. 8. There is no pericardial effusion. 9. Small Pleural Effusion. 10. The left ventricular size is normal. 11. Left ventricular wall thickness is normal. 12. Overall left ventricular systolic function is normal with, an EF between 55 - 60 %. 13. The right ventricle is normal in size. 14. Normal LA size by volume 22+/-6 ml/m2. 15. The right atrium is normal in size. 16. The aortic valve was not well visualized. 17. Mild mitral annular calcification present. [employer]INGER: Janice Rubalcava RDCS
--- NOTE | 2016-12-12 10:39 | P.CRDCN ---
History of Present Illness Consult date: 12/12/16 Consult reason: non-Q-wave [place] History of present illness: 86-year-old lady with history of dementia is brought to hospital with shortness of breath and altered sensorium. Cardiology had been consulted because of mild elevation in troponin. At the time of my evaluation this morning patient is unresponsive. Hypotensive. And family is in the process of deciding on comfort care. She denies chest pain. Does not seem short of breath at rest. She apparently has had some abdominal pain and is being worked up for the same. I reviewed her labs EKGs and had a conversation with the patient's son and nieces who are at bedside. Patient is not a candidate for any invasive procedures. Her prognosis guarded. No further cardiac workup is needed. Blood pressure tolerating we'll treat her with nitrates beta blockers and aspirin. Review of Systems Unable to obtain secondary to altered sensorium Past Medical History Past Medical History: Atrial Fibrillation, Dementia, Diabetes Mellitus, Hypertension Additional Past Medical History / Comment(s): anemia, History of Any Multi-Drug Resistant Organisms: None Reported Past Surgical History: Heart Catheterization With Stent, Pacemaker Date of Last Stent Placement:: 08/08/2011 Type of Cardiac Device: Permanent Pacemaker Device Placement Date:: 08/08/2011 Past Psychological History: No Psychological Hx Reported Smoking Status: Never smoker Past Alcohol Use History: None Reported Past Drug Use History: None Reported Medications and Allergies Home Medications Medication Instructions Recorded Confirmed Type ALPRAZolam [Xanax] 0.25 mg PO HS 11/20/16 12/11/16 History Apriso Er 0.375gm 0.375 gram PO BID 11/20/16 12/11/16 History Budesonide [Budesonide EC] 3 mg PO DAILY 11/20/16 12/11/16 History Copper 2 Mg 1 mg PO Q48H 11/20/16 12/11/16 History Dicyclomine [Bentyl] 10 mg PO QID PRN 11/20/16 12/11/16 History Ferrous Sulfate [Feosol] 325 mg PO DAILY 11/20/16 12/11/16 History Levothyroxine Sodium [Synthroid] 50 mcg PO DAILY 11/20/16 12/11/16 History Meclizine [Antivert] 12.5 mg PO TID PRN 11/20/16 12/11/16 History Metoprolol Succinate [Toprol XL] 25 mg PO DAILY 11/20/16 12/11/16 History Omeprazole [PriLOSEC] 20 mg PO AC-BRKFST 11/20/16 12/11/16 History Ranitidine HCl 300 mg PO HS 11/20/16 12/11/16 History Sertraline [Zoloft] 12.5 - 50 mg PO DAILY PRN 11/20/16 12/11/16 History metFORMIN HCL [metFORMIN HCL ER] 500 mg PO BID 11/20/16 12/11/16 History traZODone HCL 50 mg PO HS 11/20/16 12/11/16 History Furosemide [Lasix] 20 mg PO Q48H 12/08/16 12/11/16 History Allergies Allergy/AdvReac Type Severity Reaction Status Date / Time No Known Allergies Allergy Verified 12/11/16 14:26 Physical Exam Vitals: Vital Signs Temp Pulse Pulse Resp BP BP Pulse Ox 12/12/16 08:00 85 16 81/45 99 12/12/16 07:35 104 H 12/12/16 07:24 98 12/12/16 07:23 98 12/12/16 07:06 100 12/12/16 04:00 98.2 F 80 22 103/54 100 12/11/16 23:41 118 H 22 119/53 100 12/11/16 21:08 100 12/11/16 20:57 100 12/11/16 20:00 97.9 F 111 H 22 133/54 99 12/11/16 17:26 97.1 F L 101 H 18 111/58 93 L 12/11/16 17:14 97.0 F L 102 H 24 122/62 99 12/11/16 16:35 102 H 24 136/63 99 12/11/16 15:35 95 18 150/65 99 12/11/16 14:10 112 H 26 H 12/11/16 13:54 104 H 12/11/16 13:45 108 H 26 H 108/55 100 12/11/16 13:04 97.0 F L 108 H 28 H 139/63 65 L Intake and Output 12/11/16 12/12/16 12/12/16 22:59 06:59 14:59 Intake Total 50 400 Output Total 200 Balance 50 200 Intake: IV 50 400 Sodium Chloride 0.9% 1, 50 400 000 ml @ 50 mls/hr IV . Q20H [facility] Rx#:[id number] Output: Urine 200 Straight 200 Other: Voiding Method Diaper Diaper Diaper Incontinent Incontinent Incontinent # Voids 1 Weight 40 kg 47.5 kg Patient is not responsive. Heart rate is 80 bpm blood pressure is 86/60 respirators 18 chest exam reveals diminished air entry bilaterally heart exam reveals first and second heart sounds no gallop no murmur abdomen is soft exam extremities did not reveal any edema per for pulses are felt Results 12/11/16 14:25 12/11/16 14:25 Cardiac Enzymes 12/11/16 12/11/16 12/11/16 Range/Units 14:25 14:25 19:21 AST 32 (14-36) U/L CK-MB (CK-2) 4.1 H* 4.0 H* (0.0-2.4) ng/mL Troponin I 0.077 H* 0.088 H* (0.000-0.034) ng/mL 12/12/16 Range/Units 02:48 AST (14-36) U/L CK-MB (CK-2) 4.1 H* (0.0-2.4) ng/mL Troponin I 0.101 H* (0.000-0.034) ng/mL Coagulation 12/11/16 Range/Units 14:25 PT 11.9 (9.0-12.0) sec APTT 21.9 L (22.0-30.0) sec CBC 12/11/16 Range/Units 14:25 WBC 3.5 L (3.8-10.6) k/uL RBC 4.63 (3.80-5.40) m/uL Hgb 13.2 (11.4-16.0) gm/dL Hct 45.2 (34.0-46.0) % Plt Count 171 (150-450) k/uL Comprehensive Metabolic Panel 12/11/16 Range/Units 14:25 Sodium 140 (137-145) mmol/L Potassium 4.8 (3.5-5.1) mmol/L Chloride 104 (98-107) mmol/L Carbon Dioxide 30 (22-30) mmol/L BUN 29 H (7-17) mg/dL Creatinine 1.00 (0.52-1.04) mg/dL Glucose 110 H (74-99) mg/dL Calcium 9.1 (8.4-10.2) mg/dL AST 32 (14-36) U/L ALT 32 (9-52) U/L Alkaline Phosphatase 126 (38-126) U/L Total Protein 5.8 L (6.3-8.2) g/dL Albumin 2.8 L (3.5-5.0) g/dL Current Medications Generic Name Dose Route Start Last Admin Trade Name Freq PRN Reason Stop Dose Admin Albuterol/Ipratropium 3 ml 12/11/16 16:00 12/12/16 07:02 Duoneb 0.5 Mg-3 Mg/3 Ml Soln INHALATION 3 ml RT-QID BAUTISTA Administration Albuterol/Ipratropium 3 ml 12/11/16 15:51 Duoneb 0.5 Mg-3 Mg/3 Ml Soln INHALATION RT-Q4H PRN Shortness Of Breath Or Wheezing Alprazolam 0.25 mg 12/11/16 21:00 12/11/16 21:13 Xanax PO Not Given HS BAUTISTA Balsalazide 1,500 mg 12/11/16 22:00 12/12/16 08:35 Colazal PO Not Given TID BAUTISTA Budesonide 1 mg 12/12/16 08:00 12/12/16 07:03 Pulmicort INHALATION 1 mg RT-BID BAUTISTA Administration Dicyclomine HCl 10 mg 12/11/16 18:04 Bentyl PO QID PRN GI Upset Famotidine 40 mg 12/11/16 21:00 12/11/16 21:12 Pepcid PO Not Given HS BAUTISTA Ferrous Sulfate 325 mg 12/12/16 09:00 12/12/16 08:36 Feosol PO Not Given DAILY BAUTISTA Formoterol Fumarate 20 mcg 12/12/16 08:00 12/12/16 07:02 Perforomist INHALATION 20 mcg RT-BID BAUTISTA Administration Furosemide 20 mg 12/11/16 18:00 12/11/16 18:20 Lasix PO Not Given Q48H BAUTISTA Sodium Chloride 1,000 mls @ 50 mls/hr 12/11/16 18:15 12/11/16 18:36 Saline 0.9% IV 50 mls/hr .Q20H BAUTISTA Administration Ceftriaxone Sodium 1,000 mg/ 50 mls @ 100 mls/hr 12/12/16 09:00 12/12/16 08: 38 Sodium Chloride IVPB 100 mls/hr Q24HR BAUTISTA Administration Insulin Human Lispro 0 unit 12/11/16 21:00 12/12/16 06:46 Humalog SQ Not Given ACHS [facility] Protocol Iohexol 25 ml 12/12/16 00:18 Omnipaque 350 Mg/Ml (For Oral Use) PO 12/13/16 00:[address] Scan Levothyroxine Sodium 50 mcg 12/12/16 06:30 12/12/16 06:20 Synthroid PO Not Given DAILY@0630 BAUTISTA Meclizine HCl 12.5 mg 12/11/16 18:04 Antivert PO TID PRN Vertigo Metformin HCl 500 mg 12/12/16 07:30 12/12/16 06:21 Glucophage PO Not Given AC-BID BAUTISTA Methylprednisolone Sodium Succinate 60 mg 12/11/16 18:00 12/12/16 06:24 Solu-Medrol IV 60 mg Q6HR BAUTISTA Administration Metoprolol Succinate 25 mg 12/12/16 09:00 12/12/16 08:38 Toprol Xl PO Not Given DAILY BAUTISTA Naloxone HCl 0.2 mg 12/11/16 15:53 Narcan IV Q2M PRN Opioid Reversal Pantoprazole Sodium 40 mg 12/12/16 07:30 12/12/16 06:20 Protonix PO Not Given AC-BRKFST BAUTISTA Sertraline HCl 25 mg 12/11/16 18:04 Zoloft PO DAILY PRN DEPRESSION Trazodone HCl 50 mg 12/11/16 21:00 12/11/16 21:12 Desyrel PO Not Given HS BAUTISTA Intake and Output 12/11/16 12/12/16 12/12/16 22:59 06:59 14:59 Intake Total 50 400 Output Total 200 Balance 50 200 Intake: IV 50 400 Sodium Chloride 0.9% 1, 50 400 000 ml @ 50 mls/hr IV . Q20H [facility] Rx#:[id number] Output: Urine 200 Straight 200 Other: Voiding Method Diaper Diaper Diaper Incontinent Incontinent Incontinent # Voids 1 Weight 40 kg 47.5 kg 12/11/16 14:25 12/11/16 14:25 Assessment and Plan Plan: Non-ST segment elevation FL Altered sensorium Please continue supportive care prognosis guarded blood pressure permitting treat the patient with nitrates and beta blockers and aspirin. I'm going to see the patient on an as-needed basis will obtain a 2-D echo if one has not been done if she is not going to recommend comfort care.
--- NOTE | 2016-12-12 11:11 | HP ---
HISTORY AND PHYSICAL DATE OF SERVICE: 12/11/16 CHIEF COMPLAINT: Shortness of breath and change in mental status. HISTORY OF PRESENT ILLNESS: This 86-year-old woman with a past history of atrial fibrillation, dementia, diabetes, history of pacemaker, CAD/stent being followed by primary physician elsewhere , was noted to have shortness of breath and change in mental status by the family. The daughter brought the patient to the hospital. The patient is unable to give any coherent history. Patient is found to be tachypneic. Patient had features of suspected features of COPD. ABG showed acute respiratory acidosis with CO2 86 , pH of 7.19. Patient was started on BIPAP. The breathing improved significantly. Pulse ox also improved. Patient was admitted to the hospital for further evaluation and treatment. Patient also showed significant emaciation with weight loss of 30 pounds recently. The patient apparently had some dysphagia also per staff. No history of trauma. PAST MEDICAL HISTORY: History of atrial fibrillation, history of dementia, history of diabetes and hypertension. MEDICATIONS: Prior to admission. Home medications include: 1. Trazodone 50 mg q.h.s. 2. Zoloft 12.5 mg daily. P.r.n. 3. Bentyl 10 mg p.o. q.i.d. p.r.n. 4. Xanax 0.25 q.h.s. 5. Ranitidine 300 mg q.h.s. 6. Antivert 12.5 mg t.i.d. p.r.n. 7. Lasix 20 mg every 48 hours. 8. Iron sulfate 320 mg p.o. daily. 10.Toprol-XL 25 mg daily. 11.Metformin 500 mg p.o. b.i.d. 12.Prilosec 20 mg a day. 14.Synthroid 50 mcg p.o. daily. ALLERGIES: Are none. Family history, social history and review of systems could not be taken because of change in mental status. Per chart no history of smoking. PHYSICAL EXAMINATION: The patient is stuporous, short of breath at rest. Pulse is 118 and irregular. Blood pressure 119/52, respiratory 20, temp is normal. Pulse ox 100% on 3 L. HEENT: Conjunctivae normal. Oral mucosa moist. Neck is no jugular venous distention. No carotid bruit. No lymph node enlargement. No thyroid enlargement. Cardiovascular is S1, S2 irregular. Respiratory: Breath sounds diminished at the bases. Bilateral scattered rhonchi and crackles. Abdomen: Abdomen is soft, nontender. No mass palpable. Scaphoid. Legs: No edema. No swelling. NERVOUS SYSTEM: Higher functions as mentioned earlier. Moves all four limbs. Diffuse weakness and wasting present. Skin: Diffuse hematoma present, on Coumadin, Coumadin falling. Pacemaker left chest pocket. Joints: No active deforming arthropathy. LABS: WBC 3.5, hemoglobin 13.2, ABGs noted. Otherwise, troponin 0.077. Albumin is 2.8. ASSESSMENT: 1. Shortness of breath for evaluation, possible chronic obstructive pulmonary disease acute exacerbation with acute hypercapnic hypoxic respiratory failure status post BiPAP. 2. Possible congestive heart failure acute exacerbation. 3. Acute respiratory acidosis. 4. Troponin 0.088, indeterminate of origin. 5. Emaciation due to severe protein calorie malnutrition. 6. History atrial fibrillation. 7. Dementia. 8. Diabetes type 2. 9. Hypertension. 10.History of anemia. 11.History of coronary artery disease, stent. 12.History of pacemaker. 13.FULL CODE with instructions. RECOMMENDATIONS AND DISCUSSION: In this 86-year-old, who presents with multiple complex medical issues we will monitor the patient closely. Continue the current management and symptomatic treatment. Otherwise at this time we will initiate bronchodilators and as well as IV steroids. Empiric antibiotics. Otherwise we will follow the patient closely with you. I would also recommend a CT scan of the chest, abdomen and pelvis to rule out the possibility of any malignancy at this time. Patient apparently had some dysphagia also. I would recommend consultation with Gastroenterology for endoscopies. TSH also will be requested. We will also obtain a 2D echo to rule out the possibility of CHF. The overall prognosis is guarded because of multiple complex medical issues and further recommendations to follow. Discussed with staff. Further recommendations to follow. MMODL / IJN: [id number] / DARLINE
--- NOTE | 2016-12-12 12:00 | CT ---
EXAMINATION TYPE: CT ChestAbdPelvis wo con DATE OF EXAM: 12/12/2016 INDICATION: weight loss dysphagia COMPARISON: NONE CT DLP: 334.3 mGycm CONTRAST: None TECHNIQUE: Axial images at 5 mm thick sections. Reconstructed images in the coronal plane. Delayed images through the kidneys. FINDINGS: CT CHEST: Thyroid is poorly visualized. Subglottic airway is a normal caliber. Some proximal tracheal and proxi mal bronchial calcification may be present. Note is made of coronary artery calcification. There is a small right pleural effusion. A minimal left pleural effusion is present. Punctate nodular densities in the periphery of the right upper lobe measuring 0.3 cm. Series 4 image 19. Superior seg ment lower lobe pneumonitis changes are present in the infrahilar region. Consolidations in the right lower lobe. Some compressive atelectasis adjacent to the pleural effusion may be present. No enlarged mediastinal or hilar adenopathy is evident. The ascending aorta diameter at the level of the main pulmonary artery is 2.7 cm. The main pulmonary artery diameter at the bifurcation is 2.7 cm. Pectus excavatum is present. CT ABDOMEN: Liver: Diffuse infiltrative process to the liver is not excluded. Some moderate fatty infiltration co uld be considered. Spleen: Normal Pancreas: Severely atrophic Adrenal glands: Poorly visualized due to paucity of abdominal fat Gallbladder: Not identified Kidneys: Right kidney is low-lying. Left kidney is somewhat small. There is a 1.2 cm cyst in the ante rior left mid kidney. 0.6 cm cyst may be on the posterior mid right kidney.. No hydronephrosis is pre sent. No renal stones are identified. Aorta: Vascular calcification is within the aorta. Inferior vena cava: Normal. CT PELVIS: Study is performed without oral contrast. Diverticular changes are within the sigmoid colon without a cute diverticulitis. Loops of bowel without oral contrast have limited evaluation. Appendix: Normal as visualized. Urinary bladder: Normal. Genitourinary structures: Uterus appears normal. Adnexal regions are clear. Osseous structures: No suspicious lytic or sclerotic lesions. Right hip prosthesis is present. Sclero sis along the medial left iliac wing. Some degenerative changes at sacroiliac joints bilaterally. Fac et degenerative changes are within the lower lumbar spine IMPRESSIONS: 1. Overall, the patient appears cachectic. 2. Small right and minimal left pleural effusion. 3. Mild left lower lobe infiltrate. 4. Consolidation right lung base. Underlying mass cannot be excluded. 5. Liver is slightly heterogenous in low density. Fatty infiltration could be considered. An infiltra tive process is not excluded. Additional evaluation with ultrasound is recommended.
[2016-12-12] MEDS ORDERED: LORazepam 0.5 MG TAB SUBLINGUAL PRN (12:03)
[2016-12-12] MEDS ORDERED: ACETAMINOPHEN SUPPOSITORY 650 MG SUPP RECTAL PRN (12:03)
[2016-12-12] MEDS ORDERED: SCOPOLAMINE 1.5MG/72HR PATCH TRANSDERM PRN (12:03)
[2016-12-12] MEDS ORDERED: ARTIFICIAL TEARS-HYPROMELLOSE DROPS 15 ML BTL BOTH EYES PRN (12:03)
[2016-12-12] MEDS ORDERED: MORPHINE SULFATE (100 MG/2 ML) 100 MG in SODIUM CHLORIDE 0.9% 100 ML IV SCH (12:15)
[2016-12-12 13:08] VITALS: BMI 20.4
--- NOTE | 2016-12-12 18:33 | P.PN ---
Subjective Date of service 12/12/2016. Personal being dictated for Dr. Alicea. Interval history: This is an 86-year-old female admitted with shortness of breath, possible acute COPD exacerbation, possible CHF, acute respiratory acidosis, indeterminate elevated troponin, severe protein calorie malnutrition and multiple other medical issues. Patient's condition significantly declined overnight, patient's family wishing to change CODE STATUS to no code no CPR, no intubation with comfort care and hospice. Past medical history reviewed Review systems unable to obtain as patient is unresponsive Medications currently being adjusted to comfort care protocol only, including morphine drip, Ativan, scopolamine, natural tears, rectal Tylenol suppository M when necessary duo nebs. Objective - Vital Signs Vital signs: Vital Signs Temp 98.2 F 12/12/16 04:00 Pulse 85 12/12/16 08:00 Resp 16 12/12/16 08:00 BP 81/45 12/12/16 08:00 Pulse Ox 99 12/12/16 08:00 Intake & Output 12/11/16 12/12/16 12/12/16 18:59 06:59 18:59 Intake Total 450 Output Total 200 Balance 250 Weight 40 kg 47.5 kg Intake: IV 450 Sodium Chloride 0.9% 1, 450 000 ml @ 50 mls/hr IV . Q20H [facility] Rx#:[id number] Output: Urine 200 Straight 200 Other: Voiding Method Diaper Diaper Incontinent Incontinent # Voids 1 - Exam PHYSICAL EXAM: VITAL SIGNS: As above GENERAL: Lying in bed, unresponsive HEENT: Conjunctivae normal. eyes normal. Head Atraumatic. NECK: No JVD. No thyroid enlargement. No LNs. CARDIOVASCULAR: S1, S2 muffled. No murmur, rubs or gallops. Left chest pacemaker. RESPIRATION: Breath sounds diminished in the bases. Scattered rhonchi throughout .no crackles, no wheezing. ABDOMEN: Soft, nontender, nondistended .no masses palpable. Bowel sounds heard. Scaphoid. LEGS: No edema. no swelling PSYCHIATRY/NERVOUS SYSTEM: Unable to evaluate this patient unresponsive Skin: Diffuse hematoma present( on coumadin) Joints: No active swelling. No inflammation. Lymphatic system. No LN neck axilla or groin. - Labs CBC & Chem 7: 12/11/16 14:25 12/11/16 14:25 Labs: Abnormal Lab Results - Last 24 Hours (Table) 12/11/16 12/11/16 12/11/16 Range/Units 13:13 14:25 14:25 WBC 3.5 L (3.8-10.6) k/uL MCHC 29.2 L (31.0-37.0) g/dL RDW 17.2 H (11.5-15.5) % Lymphocytes # 0.8 L (1.0-4.8) k/uL INR 1.2 H (<1.2) APTT 21.9 L (22.0-30.0) sec ABG pH 7.19 L* (7.35-7.45) ABG pCO2 86 H* (35-45) mmHg ABG pO2 >400 H (83-108) mmHg ABG HCO3 31 H (21-25) mmol/L ABG Total CO2 34 H (19-24) mmol/L ABG O2 Saturation 100.0 H (94-97) % BUN (7-17) mg/dL Glucose (74-99) mg/dL POC Glucose (mg/dL) (75-99) mg/dL Total Creatine Kinase (30-135) U/L CK-MB (CK-2) (0.0-2.4) ng/mL Troponin I (0.000-0.034) ng/mL Total Protein (6.3-8.2) g/dL Albumin (3.5-5.0) g/dL Urine Protein (Negative) 12/11/16 12/11/16 12/11/16 Range/Units 14:25 14:25 19:21 WBC (3.8-10.6) k/uL MCHC (31.0-37.0) g/dL RDW (11.5-15.5) % Lymphocytes # (1.0-4.8) k/uL INR (<1.2) APTT (22.0-30.0) sec ABG pH (7.35-7.45) ABG pCO2 (35-45) mmHg ABG pO2 (83-108) mmHg ABG HCO3 (21-25) mmol/L ABG Total CO2 (19-24) mmol/L ABG O2 Saturation (94-97) % BUN 29 H (7-17) mg/dL Glucose 110 H (74-99) mg/dL POC Glucose (mg/dL) (75-99) mg/dL Total Creatine Kinase 25 L (30-135) U/L CK-MB (CK-2) 4.1 H* 4.0 H* (0.0-2.4) ng/mL Troponin I 0.077 H* 0.088 H* (0.000-0.034) ng/mL Total Protein 5.8 L (6.3-8.2) g/dL Albumin 2.8 L (3.5-5.0) g/dL Urine Protein (Negative) 12/11/16 12/12/16 12/12/16 Range/Units 21:27 02:39 02:48 WBC (3.8-10.6) k/uL MCHC (31.0-37.0) g/dL RDW (11.5-15.5) % Lymphocytes # (1.0-4.8) k/uL INR (<1.2) APTT (22.0-30.0) sec ABG pH (7.35-7.45) ABG pCO2 (35-45) mmHg ABG pO2 (83-108) mmHg ABG HCO3 (21-25) mmol/L ABG Total CO2 (19-24) mmol/L ABG O2 Saturation (94-97) % BUN (7-17) mg/dL Glucose (74-99) mg/dL POC Glucose (mg/dL) 116 H (75-99) mg/dL Total Creatine Kinase 25 L (30-135) U/L CK-MB (CK-2) 4.1 H* (0.0-2.4) ng/mL Troponin I 0.101 H* (0.000-0.034) ng/mL Total Protein (6.3-8.2) g/dL Albumin (3.5-5.0) g/dL Urine Protein Trace H (Negative) 12/12/16 Range/Units 06:33 WBC (3.8-10.6) k/uL MCHC (31.0-37.0) g/dL RDW (11.5-15.5) % Lymphocytes # (1.0-4.8) k/uL INR (<1.2) APTT (22.0-30.0) sec ABG pH (7.35-7.45) ABG pCO2 (35-45) mmHg ABG pO2 (83-108) mmHg ABG HCO3 (21-25) mmol/L ABG Total CO2 (19-24) mmol/L ABG O2 Saturation (94-97) % BUN (7-17) mg/dL Glucose (74-99) mg/dL POC Glucose (mg/dL) 122 H (75-99) mg/dL Total Creatine Kinase (30-135) U/L CK-MB (CK-2) (0.0-2.4) ng/mL Troponin I (0.000-0.034) ng/mL Total Protein (6.3-8.2) g/dL Albumin (3.5-5.0) g/dL Urine Protein (Negative) Assessment and Plan Plan: 1. [ Shortness of breath for evaluation, possible COPD acute exacerbation with acute hypercapnic, hypoxic respiratory failure status post BiPAP]. 2. [ Possible acute CHF exacerbation]. 3. [ Acute respiratory acidosis]. 4. [ Troponin 0.088, indeterminate of origin]. 5. [ Emaciation due to severe protein calorie malnutrition]. 6. [ Dementia]. 7. No code, no CPR, no intubation 8. Comfort care Plan: As mentioned above , condition declined, family updated. Per family's wishes patient has been changed to comfort care with hospice consulted for GIP admission. Questions and concerns addressed. Support given. Comfort care protocol initiated. The impression and plan of care has been dictated as directed as a scribe. : I performed a H&P examination of this patient and discussed the same with the dictator. I agree with the dictator's note. Any additional findings/opinions/ etc. will be noted. Time spent:35 min
--- NOTE | 2016-12-13 17:58 | P.DS ---
Providers Date of admission: 12/11/16 15:52 Attending physician: Jostin Alicea Consults: 12/11/16 15:51 Consult Physician Routine Consulting Provider: Rodri Sprague Consult Reason/Comments: resp failure Do you want consulting provider notified?: Yes Consult Physician Routine Consulting Provider: Lyle Dumont Consult Reason/Comments: elevated trop Do you want consulting provider notified?: Yes Primary care physician: Physician Nonstaff Hospital Course: This 86-year-old woman was admitted with a shortness of breath possibly secondary to COPD acute exacerbation with acute hypercapnic Respiratory failure. Patient treated with BiPAP. Patient also had possible CHF exacerbation. Patient was found to be severely emaciated. Patient also significant disease in the healing as well. The case is discussed at length with the family. The family and the son would like to proceed with hospice and comfort measures. Hospice and was consulted and the patient was transitioned inpatient hospice and patient subsequently succumbed to her above- mentioned medical issues. The prognosis remains very guarded throughout the hospitalization. Please refer to the ER notes, staff notes and multiple progress and consultations for further information. Primary cause of COPD acute exacerbation with acute hypercapnic hypoxic respiratory failure status post BiPAP Other diagnosis 1.CHF acute exacerbation 2. Acute respiratory acidosis secondary to COPD acute exacerbation 3. Troponin 0.088 indeterminate origin 4. Severe emaciation due to severe protein calorie malnutrition 5. Dementia 6. No CPR no event 7. comfort measures and hospice care. Patient Condition at Discharge: Serious Plan - Discharge Summary New Discharge Prescriptions: New Acetaminophen Suppository [Tylenol Suppository] 650 mg RECTAL Q4HR PRN suppositor PRN Reason: Fever And/Or Mild Pain Artificial Tears-Hypromellose [Artificial Tear Drops] 1 drops BOTH EYES Q2HR PRN bottle PRN Reason: Dry Eye(S) cefTRIAXone [Rocephin] 1,000 mg IVPB Q24HR vial Ipratropium-Albuterol Nebulize [Duoneb 0.5 mg-3 mg/3 ml Soln] 3 ml INHALATION RT-Q4H PRN neb PRN Reason: Shortness Of Breath Or Wheezing LORazepam [Ativan] 0.5 mg SUBLINGUAL TID PRN tab PRN Reason: Anxiety Scopolamine 1.5MG/72Hr Patch [TransDerm Scop] 1 patch TRANSDERM Q72H PRN patch PRN Reason: Secretions Discharge Medication List Acetaminophen Suppository [Tylenol Suppository] 650 mg RECTAL Q4HR PRN suppositor 12/12/16 [Rx] Artificial Tears-Hypromellose [Artificial Tear Drops] 1 drops BOTH EYES Q2HR PRN bottle 12/12/16 [Rx] Ipratropium-Albuterol Nebulize [Duoneb 0.5 mg-3 mg/3 ml Soln] 3 ml INHALATION RT -Q4H PRN neb 12/12/16 [Rx] LORazepam [Ativan] 0.5 mg SUBLINGUAL TID PRN tab 12/12/16 [Rx] Scopolamine 1.5MG/72Hr Patch [TransDerm Scop] 1 patch TRANSDERM Q72H PRN patch 12/12/16 [Rx] cefTRIAXone [Rocephin] 1,000 mg IVPB Q24HR vial 12/12/16 [Rx] Activity/Diet/Wound Care/Special Instructions: MOrphine IV GTT per comfort care protocol GIP Discharge Disposition: DISCH TO HOSPICE MED FACILTY
== END 2016-12-12 13:07 | disposition hospice, inpatient (51) | DRG 189 ==
LOC: EC 12:58 → 6SEL 15:52 → 5ONC 12-12 12:52
PROVIDERS: ADMIT Hospitalist; ATTEND Hospitalist
DX: J96.01 Acute respiratory failure with hypoxia (principal); I21.4 Non-ST elevation (NSTEMI) myocardial infarction; E43 Unspecified severe protein-calorie malnutrition; E87.2 Acidosis; J44.1 Chronic obstructive pulmonary disease with (acute) exacerbation; I11.0 Hypertensive heart disease with heart failure; F03.90 Unspecified dementia, unspecified severity, without behavioral disturbance, psychotic disturbance, mood disturbance, and anxiety; I48.91 Unspecified atrial fibrillation; R13.10 Dysphagia, unspecified; R64 Cachexia; I50.9 Heart failure, unspecified; J96.02 Acute respiratory failure with hypercapnia; E11.9 Type 2 diabetes mellitus without complications; I25.10 Atherosclerotic heart disease of native coronary artery without angina pectoris; Z51.5 Encounter for palliative care; Z79.899 Other long term (current) drug therapy; Z95.0 Presence of cardiac pacemaker; Z95.5 Presence of coronary angioplasty implant and graft
CPT/HCPCS: 36415; 36600; 71020; 71250; 74176; 80053; 81003; 82550; 82553; 82805; 83880; 84443; 84484; 85025; 85610; 85730; 93005; 93306; 94640; 94660; 96374; 99291

== ENCOUNTER 2016-12-12 13:09 | Inpatient (IN) | payer MEDICAID, MEDICARE ==
[2016-12-12] MEDS ORDERED: LORazepam 2 MG/ML SYRINGE IV PRN (13:28)
[2016-12-12] MEDS ORDERED: MORPHINE SULFATE (100 MG/2 ML) 100 MG in SODIUM CHLORIDE 0.9% 100 ML IV SCH ×4 (13:30)
[2016-12-12] MEDS ORDERED: ACETAMINOPHEN SUPPOSITORY 650 MG SUPP RECTAL PRN (14:10)
[2016-12-12] MEDS ORDERED: BISACODYL 10 MG SUPP RECTAL PRN (14:12)
[2016-12-12] MEDS ORDERED: PROCHLORPERAZINE 10 MG TAB PO PRN (14:13)
[2016-12-12] MEDS ORDERED: ONDANSETRON 4 MG/2 ML VIAL IVP PRN (14:14)
[2016-12-12 14:24] VITALS: BMI 20.4
[2016-12-12] MEDS ORDERED: SCOPOLAMINE 1.5MG/72HR PATCH TRANSDERM SCH (15:00)
[2016-12-12 16:03] VITALS: PULSE 54
== END 2016-12-12 23:17 | disposition expired | DRG 291 ==
LOC: 5ONC 13:09
PROVIDERS: ADMIT Hospitalist; ATTEND Hospitalist
DX: I11.0 Hypertensive heart disease with heart failure (principal); E43 Unspecified severe protein-calorie malnutrition; E87.2 Acidosis; J44.1 Chronic obstructive pulmonary disease with (acute) exacerbation; J96.01 Acute respiratory failure with hypoxia; J96.02 Acute respiratory failure with hypercapnia; E11.9 Type 2 diabetes mellitus without complications; I48.91 Unspecified atrial fibrillation; F03.90 Unspecified dementia, unspecified severity, without behavioral disturbance, psychotic disturbance, mood disturbance, and anxiety; R13.10 Dysphagia, unspecified; I50.9 Heart failure, unspecified; Z51.5 Encounter for palliative care; Z66 Do not resuscitate; I25.10 Atherosclerotic heart disease of native coronary artery without angina pectoris; R74.8 Abnormal levels of other serum enzymes; R53.1 Weakness; D64.9 Anemia, unspecified; M62.59 Muscle wasting and atrophy, not elsewhere classified, multiple sites; Z95.0 Presence of cardiac pacemaker; Z95.5 Presence of coronary angioplasty implant and graft; Z68.20 Body mass index [BMI] 20.0-20.9, adult; Z79.84 Long term (current) use of oral hypoglycemic drugs; Z79.899 Other long term (current) drug therapy